=== PATIENT | male | born 1945 | race Hispanic/Latino ===

== ENCOUNTER 2017-06-11 05:39 | Emergency (ER) | payer OTHER ==
[2017-06-11] MEDS ORDERED: IPRATROPIUM/ALBUTEROL SULFATE 3 ML SOLUTION IH ONE (06:13)
[2017-06-11 06:24] LABS: BASOPHILS % (AUTO) 0.5 % (0.0-5.0); EOSINOPHILS % (AUTO) 1.9 % (0.0-8.0); HEMATOCRIT 39.3 % (42-54); LYMPHOCYTES % (AUTO) 38.4 % (21.0-51.0); MEAN CORPUSCULAR HGB CONC 34.2 g/dL (32.0-36.0); MEAN CORPUSCULAR VOLUME 90.4 fL (79-99); MONOCYTES % (AUTO) 6.8 % (3.0-13.0); NEUTROPHILS % (AUTO) 52.4 % (40.0-77.0); PLATELET COUNT (AUTO) 223 K/uL (130-400); RED BLOOD CELL COUNT(AUTO) 4.35 MIL/uL (4.50-6.20); RED CELL DISTRIBUTION WIDTH 13.5 % (11.0-15.5); WHITE BLOOD COUNT (AUTO) 8.1 K/uL (4.8-10.8)
[2017-06-11 06:37] LABS: CREATININE 0.8 mg/dL (0.5-1.5); POTASSIUM 3.8 mmol/L (3.5-5.1)
[2017-06-11 06:41] LABS: ALBUMIN 3.9 g/dL (3.5-5.0); BILIRUBIN,DIRECT 0.1 mg/dL (0.0-0.3); BILIRUBIN,TOTAL 0.4 mg/dL (0.2-1.0); TOTAL PROTEIN, SERUM 7.4 g/dL (6.0-8.3)
[2017-06-11 07:31] LABS: B-TYPE NATRIURETIC PEPTIDE 5 pg/mL (0-100)
[2017-06-11] MEDS ORDERED: SODIUM CHLORIDE 0.9% 500ML 500 ML IV ONE (09:15)
[2017-06-11] MEDS ORDERED: IOPAMIDOL-370 100 ML VIAL IV ONE (10:25)
== END 2017-06-11 12:50 | disposition home or self-care (01) ==
LOC: EDH 05:39
DX: K29.00 Acute gastritis without bleeding (principal); R06.00 Dyspnea, unspecified; B96.81 Helicobacter pylori [H. pylori] as the cause of diseases classified elsewhere; D35.02 Benign neoplasm of left adrenal gland; E11.9 Type 2 diabetes mellitus without complications; I10 Essential (primary) hypertension; Z87.891 Personal history of nicotine dependence
CPT/HCPCS: 36415; 71045; 71275; 80048; 80076; 82550; 83880; 84484; 85025; 85378; 86677; 93005; 96360; 96361; 99291; J7040; Q9967

== ENCOUNTER 2018-03-16 01:10 | Observation (INO) | payer OTHER ==
[~2018-03-16] VITALS: Ht 177.8 cm; Wt 90.8 kg
[~2018-03-16 01:10] MED LIST: ASPI-1197 PO; CLOP75TA14 PO; DULA1.5P SQ; FINA5TAB41 PO; GLIP1TAB5 PO; IPRA3AMP24 IH; LISI-613 PO; NITR30OI6 RC; SIMV20TA6 PO; TAMS0.4C32 PO
[2018-03-16 01:56] LABS: BASOPHILS % (AUTO) 0.7 % (0.0-5.0); EOSINOPHILS % (AUTO) 3.7 % (0.0-8.0); LYMPHOCYTES % (AUTO) 41.4 % (21.0-51.0); MEAN CORPUSCULAR VOLUME 90.7 fL (79-99); MONOCYTES % (AUTO) 6.9 % (3.0-13.0); NEUTROPHILS % (AUTO) 47.3 % (40.0-77.0); PLATELET COUNT (AUTO) 222 K/uL (130-400); RED BLOOD CELL COUNT(AUTO) 3.75 MIL/uL (4.50-6.20); WHITE BLOOD COUNT (AUTO) 8.5 K/uL (4.8-10.8)
[2018-03-16 02:08] LABS: CARBON DIOXIDE 26 mmol/L (21-32); CHLORIDE 100 mmol/L (101-111); CREATININE 1.2 mg/dL (0.5-1.5); GLOMERULAR FILTR. RATE CALC 63 mL/min (>60); GLUCOSE,RANDOM 219 mg/dL (70-105); SODIUM SERUM 138 mmol/L (136-145); UREA NITROGEN, BLOOD 20 mg/dL (7-18)
[2018-03-16 02:10] LABS: INR 0.96 (0.85-1.15); PARTIAL THROMBOPLASTIN TIME 27.7 SEC (26.3-35.5); PROTHROMBIN TIME 10.1 SEC (9.6-11.6)
[2018-03-16 02:12] LABS: ALANINE AMINOTRANSFERASE 17 U/L (12-78); ALBUMIN 3.6 g/dL (3.5-5.0); ASPARTATE AMINOTRANSFERASE 12 U/L (10-37); BILIRUBIN,TOTAL 0.3 mg/dL (0.2-1.0); CREATINE KINASE, TOTAL 43 U/L (21-232); TOTAL PROTEIN, SERUM 6.8 g/dL (6.0-8.3)
[2018-03-16 02:15] LABS: CRP QUANTITATIVE < 2.00 mg/L (0.00-9.0)
[2018-03-16 02:18] LABS: B-TYPE NATRIURETIC PEPTIDE 5 pg/mL (0-100)
[2018-03-16 02:24] LABS: APPEARANCE,URINE Clear (CLEAR); BILIRUBIN,URINE Negative (NEGATIVE); COLOR,URINE Yellow (YELLOW); GLUCOSE, URINE (UA) Negative (NEGATIVE); KETONES,URINE Negative (NEGATIVE); LEUKOCYTE ESTERASE ,URINE Negative (NEGATIVE); NITRATE,URINE Negative (NEGATIVE); OCCULT BLOOD,URINE Negative (NEGATIVE); PROTEIN,URINE Negative (NEGATIVE); UROBILINOGEN,URINE 0.2 mg/dL (0.2-1.0)
[2018-03-16 03:03] LABS: ERYTHROCYTE SEDIMENTATION RATE 25 MM/HR (0-20)
[2018-03-16 06:21] LABS: BASOPHILS % (AUTO) 0.7 % (0.0-5.0); EOSINOPHILS % (AUTO) 2.2 % (0.0-8.0); HEMATOCRIT 32.4 % (42-54); LYMPHOCYTES % (AUTO) 31.1 % (21.0-51.0); MEAN CORPUSCULAR HEMOGLOBIN 29.7 pg (27.0-33.0); MEAN CORPUSCULAR HGB CONC 32.9 g/dL (32.0-36.0); MEAN CORPUSCULAR VOLUME 90.2 fL (79-99); MONOCYTES % (AUTO) 7.7 % (3.0-13.0); NEUTROPHILS % (AUTO) 58.3 % (40.0-77.0); NUCLEATED RED BLOOD CELLS 0.1 % (0.0-0.19); PLATELET COUNT (AUTO) 213 K/uL (130-400); RED BLOOD CELL COUNT(AUTO) 3.59 MIL/uL (4.50-6.20); RED CELL DISTRIBUTION WIDTH 15.4 % (11.0-15.5)
[2018-03-16 06:28] LABS: CREATININE 1.1 mg/dL (0.5-1.5); POTASSIUM 4.4 mmol/L (3.5-5.1)
[2018-03-16] MEDS ORDERED: SODIUM CHLORIDE 0.9% 10 ML VIAL IVP PRN (06:30)
[2018-03-16] MEDS ORDERED: HYDROCODONE/ACETAMINOPHEN 5/325 MG TAB PO PRN (06:30)
[2018-03-16 06:34] LABS: ALBUMIN 3.5 g/dL (3.5-5.0); BILIRUBIN,TOTAL 0.2 mg/dL (0.2-1.0); TOTAL PROTEIN, SERUM 6.8 g/dL (6.0-8.3)
[2018-03-16 08:25] VITALS: BP 145/81
[2018-03-16] MEDS ORDERED: ENOXAPARIN SODIUM 80 MG/0.8 ML SQ SCH (09:00)
[2018-03-16 11:00] VITALS: BP 142/72
[2018-03-16] MEDS: INSULIN R PO SS1 SQ SCH ×3 (11:30→20:51)
[2018-03-16] MEDS ORDERED: ASPI-1012 PO (12:35)
[2018-03-16] MEDS ORDERED: CLIN300C9 PO (12:43)
[2018-03-16] MEDS ORDERED: SULF1TAB42 PO (12:43)
[2018-03-16] MEDS ORDERED: FURO20TA4 PO (12:43)
[2018-03-16] MEDS: CLINDAMYCIN HCL 150 MG CAP PO SCH ×2 (14:27→20:55)
[2018-03-16] MEDS ORDERED: HEPARIN 25000 UNITS/250 ML D5W 250 ML IV PRN (15:15)
[2018-03-16] MEDS: FUROSEMIDE 20 MG TABLET PO SCH (15:34)
[2018-03-16 16:00] VITALS: BP 117/65
[2018-03-16] MEDS: METFORMIN HCL 500 MG TABLET PO SCH (16:22)
[2018-03-16] MEDS ORDERED: HEPARIN SODIUM 5000UNIT/ML 1ML VIAL ONE ×2 (16:30→16:59)
[2018-03-16] MEDS: IPRATROPIUM/ALBUTEROL SULFATE 3 ML SOLUTION IH SCH ×2 (18:24→23:17)
[2018-03-16 20:00] VITALS: BP 136/56
[2018-03-16] MEDS: SULFAMETHOX-TMP DS 800/160 TAB PO SCH (20:54)
[2018-03-16] MEDS ORDERED: SIMVASTATIN 20 MG TABLET PO SCH (21:00)
[2018-03-17] VITALS: BP 112/62
[2018-03-17 04:00] VITALS: BP 127/72
[2018-03-17 05:19] LABS: HEMATOCRIT 31.6 % (42-54); MEAN CORPUSCULAR HEMOGLOBIN 30.9 pg (27.0-33.0); MEAN CORPUSCULAR HGB CONC 34.2 g/dL (32.0-36.0); MEAN CORPUSCULAR VOLUME 90.2 fL (79-99); PLATELET COUNT (AUTO) 242 K/uL (130-400); RED CELL DISTRIBUTION WIDTH 15.2 % (11.0-15.5); WHITE BLOOD COUNT (AUTO) 6.5 K/uL (4.8-10.8)
[2018-03-17 05:31] LABS: CREATININE 0.9 mg/dL (0.5-1.5); POTASSIUM 4.2 mmol/L (3.5-5.1)
[2018-03-17] MEDS: IPRATROPIUM/ALBUTEROL SULFATE 3 ML SOLUTION IH SCH ×2 (06:09→11:28)
[2018-03-17] MEDS: INSULIN R PO SS1 SQ SCH ×2 (06:27→11:30)
[2018-03-17] MEDS: FUROSEMIDE 20 MG TABLET PO SCH (06:27)
[2018-03-17 07:30] VITALS: BP 123/64
[2018-03-17] MEDS: CLINDAMYCIN HCL 150 MG CAP PO SCH (08:38)
[2018-03-17] MEDS: METFORMIN HCL 500 MG TABLET PO SCH (08:38)
[2018-03-17] MEDS: SULFAMETHOX-TMP DS 800/160 TAB PO SCH (08:38)
[2018-03-17] MEDS ORDERED: LISINOPRIL 20 MG TABLET PO SCH (09:00)
[2018-03-17] MEDS ORDERED: **HM** TRULICITY 1.5MG SQ SCH (09:00)
[2018-03-17] MEDS ORDERED: CLOPIDOGREL BISULFATE 75 MG TAB PO SCH (09:00)
[2018-03-17] MEDS ORDERED: ASPIRIN 325 MG TABLET PO SCH (09:00)
[2018-03-17 11:00] VITALS: BP 121/62
[2018-03-17] MEDS ORDERED: PREGABALIN 75 MG CAPSULE PO SCH (14:00)
[2018-03-17] MEDS ORDERED: GLIPIZIDE 5 MG TABLET PO SCH (17:00)
== END 2018-03-17 13:40 | disposition home or self-care (01) ==
LOC: EDH 01:10 → INTOOBSV 05:11 → EDHIP 05:11 → 3CH 05:38
PROVIDERS: ADMIT Internal Medicine; ATTEND Internal Medicine
DX: E11.51 Type 2 diabetes mellitus with diabetic peripheral angiopathy without gangrene (principal); E78.5 Hyperlipidemia, unspecified; I10 Essential (primary) hypertension; I25.10 Atherosclerotic heart disease of native coronary artery without angina pectoris; I99.8 Other disorder of circulatory system; Z96.698 Presence of other orthopedic joint implants; Z96.622 Presence of left artificial elbow joint; Z96.621 Presence of right artificial elbow joint; Z87.891 Personal history of nicotine dependence; Z79.899 Other long term (current) drug therapy
CPT/HCPCS: 36415 ×2; 80048; 80053 ×2; 81003; 82550; 82948 ×5; 83880; 84484; 85025 ×2; 85027; 85610; 85651; 85730 ×4; 86140; 93005; 93925; 93971; 94640 ×4; 94664; 96372; 99291; G0378 ×32; J1644 ×3; J1650

== ENCOUNTER 2018-10-28 09:00 | Day surgery (SDC) | payer OTHER ==
[~2018-10-28] VITALS: Ht 177.8 cm; Wt 95.3 kg
[~2018-10-28 09:00] MED LIST changes: -ASPI-1197 PO; +ASPI-555 PO; +ATOR40TA71 PO; +CILO100T PO; -DULA1.5P SQ; -IPRA3AMP24 IH; +LORA-997 PO; -NITR30OI6 RC; +RIVA2.5T PO; +SODIUM CHLORIDE 0.9% 1000ML 1,000 ML IV ONE; +TYL3 PO
[2018-10-28 11:29] VITALS: BP 149/81
[2018-10-28 12:15] VITALS: BP 98/54
[2018-10-28 12:20] VITALS: BP 107/53
[2018-10-28 12:25] VITALS: BP 110/55
[2018-10-28 12:30] VITALS: BP 122/66
[2018-10-28 12:35] VITALS: BP 126/68
--- NOTE | 2018-10-28 12:47 | NUR ---
DC PT DC HOME VIA WC, NO DISTRESS NOTED. DENIES ANY PAIN OR DISCOMFORTS ACCOMPANIED BY SPOUSE
== END 2018-10-28 12:47 | disposition home or self-care (01) ==
LOC: DAH 09:00 → ENDO 09:00
PROVIDERS: ATTEND Internal Medicine
DX: D12.3 Benign neoplasm of transverse colon (principal); D12.4 Benign neoplasm of descending colon; D12.5 Benign neoplasm of sigmoid colon; K62.1 Rectal polyp; K64.1 Second degree hemorrhoids; K57.30 Diverticulosis of large intestine without perforation or abscess without bleeding; J44.9 Chronic obstructive pulmonary disease, unspecified; E78.5 Hyperlipidemia, unspecified; I25.10 Atherosclerotic heart disease of native coronary artery without angina pectoris; E11.51 Type 2 diabetes mellitus with diabetic peripheral angiopathy without gangrene
CPT/HCPCS: 45380; 45385; 82948 ×2; 88305; A4606; J7030; 45384

== ENCOUNTER 2020-04-08 11:51 | Inpatient (IN) | payer OTHER ==
[~2020-04-08] VITALS: Ht 177.8 cm; Wt 95.3 kg
[~2020-04-08 11:51] MED LIST changes: -ASPI-555 PO; +ASPI-556 PO; +SIMV-43 PO; -SIMV20TA6 PO; -SODIUM CHLORIDE 0.9% 1000ML 1,000 ML IV ONE
[2020-04-08] MEDS ORDERED: ACETAMINOPHEN EXTRA STRENGTH 500 MG TABLET ONE (12:15)
[2020-04-08] MEDS ORDERED: SODIUM CHLORIDE 0.9% 1000ML 1,000 ML IV ONE ×2 (12:15→14:43)
[2020-04-08 12:22] LABS: BASOPHILS % (AUTO) 0.2 % (0.0-5.0); EOSINOPHILS % (AUTO) 1.6 % (0.0-8.0); HEMATOCRIT 38.3 % (42-54); MEAN CORPUSCULAR HEMOGLOBIN 30.1 pg (27.0-33.0); MEAN CORPUSCULAR HGB CONC 34.7 g/dL (32.0-36.0); MEAN CORPUSCULAR VOLUME 86.7 fL (79-99); MONOCYTES % (AUTO) 6.2 % (3.0-13.0); NEUTROPHILS % (AUTO) 70.7 % (40.0-77.0); PLATELET COUNT (AUTO) 181 K/uL (130-400); RED BLOOD CELL COUNT(AUTO) 4.42 MIL/uL (4.50-6.20); RED CELL DISTRIBUTION WIDTH 12.7 % (11.0-15.5); WHITE BLOOD COUNT (AUTO) 6.1 K/uL (4.8-10.8)
[2020-04-08] MEDS ORDERED: AZITHROMYCIN 250 MG TABLET PO ONE (12:31)
[2020-04-08] MEDS ORDERED: ONDANSETRON HCL 4 MG/2 ML VIAL ONE (12:31)
[2020-04-08] MEDS ORDERED: DEXAMETHASONE SOD PHOSPHATE 10MG/ML 1ML VIAL ONE (12:31)
[2020-04-08] MEDS ORDERED: CEFTRIAXONE SODIUM 1 GM ONE (12:31)
[2020-04-08 12:45] LABS: RAPID GROUP A STREP NEGATIVE (NEGATIVE)
[2020-04-08 12:48] LABS: INR 1.05 (0.85-1.15); PROTHROMBIN TIME 11.2 SEC (9.6-11.6)
[2020-04-08 12:49] LABS: PARTIAL THROMBOPLASTIN TIME 31.2 SEC (26.3-35.5)
[2020-04-08 12:58] LABS: ABG BASE EXCESS -0.5 mmol/L (-2.0-3.0); ABG HCO3 21.6 mmol/L (21.0-28.0); ABG PCO2 29 mmHg (35-48)
[2020-04-08 13:07] LABS: POTASSIUM 3.8 mmol/L (3.5-5.1)
[2020-04-08 13:12] LABS: ALBUMIN 3.3 g/dL (3.5-5.0); BILIRUBIN,TOTAL 0.5 mg/dL (0.2-1.0); TOTAL PROTEIN, SERUM 7.6 g/dL (6.0-8.3)
[2020-04-08] MEDS ORDERED: LOPERAMIDE HCL 2 MG CAP PO PRN (13:45)
[2020-04-08] MEDS ORDERED: LACTULOSE 20 GM/30 ML UDCUP PO PRN (13:45)
[2020-04-08] MEDS ORDERED: DEXAMETHASONE SOD PHOSPHATE 4 MG/ML 1ML VIAL IVP SCH (13:45)
[2020-04-08] MEDS ORDERED: DOXYCYCLINE 100MG+NS 250ML IV SCH (13:45)
[2020-04-08] MEDS ORDERED: SODIUM CHLORIDE 0.9% 1000ML 1,000 ML IV SCH (13:45)
[2020-04-08] MEDS ORDERED: ERGOCALCIFEROL (VITAMIN D2) 50,000 UNIT CAPSULE PO ONE (13:45)
[2020-04-08] MEDS ORDERED: CEFTRIAXONE SODIUM 1 GM IVP SCH (13:45)
[2020-04-08] MEDS ORDERED: ACETAMINOPHEN 325 MG TAB PO PRN (13:45)
[2020-04-08] MEDS ORDERED: LABETALOL 20 MG/4 ML DISP.SYRIN IV PRN (13:45)
[2020-04-08] MEDS ORDERED: ACETAMINOPHEN-CODEINE 300/30MG TAB PO PRN (13:45)
[2020-04-08] MEDS ORDERED: DOXYCYCLINE 100MG+NS 250ML 250 ML IV SCH (14:00)
[2020-04-08] MEDS ORDERED: ERGOCALCIFEROL (VITAMIN D2) 50,000 UNIT CAPSULE ONE (14:42)
[2020-04-08] MEDS ORDERED: DOXYCYCLINE 100MG+NS 250ML 250 ML IV ONE (14:43)
[2020-04-08] MEDS ORDERED: GUAIFENESIN-DM 200/20 MG 10 ML PO PRN (15:30)
[2020-04-08] MEDS ORDERED: BENZONATATE 100 MG CAPSULE PO SCH (15:30)
[2020-04-08] MEDS ORDERED: ACETAMINOPHEN-CODEINE 300/30MG TAB PO SCH (15:45)
[2020-04-08] MEDS ORDERED: SIMVASTATIN 20 MG TABLET PO SCH (21:00)
[2020-04-08] MEDS ORDERED: FAMOTIDINE 20MG TAB 20 MG TAB PO SCH (21:00)
[2020-04-08] MEDS ORDERED: RIVAROXABAN 2.5 MG TABLET PO SCH (21:00)
[2020-04-08] MEDS ORDERED: CILOSTAZOL 100 MG TAB PO SCH (21:00)
[2020-04-08] MEDS ORDERED: FAMOTIDINE 20MG TAB 20 MG TAB ONE (23:11)
[2020-04-09 04:16] LABS: ABG BASE EXCESS -3.5 mmol/L (-2.0-3.0); ABG HCO3 20.5 mmol/L (21.0-28.0); ABG OXYGEN SATURATION 93.7 % (95.0-99.0); ABG PCO2 34 mmHg (35-48)
[2020-04-09 05:47] LABS: HEMATOCRIT 37.3 % (42-54); LYMPHOCYTES % (AUTO) 24.9 % (21.0-51.0); MEAN CORPUSCULAR HGB CONC 34.3 g/dL (32.0-36.0); MEAN CORPUSCULAR VOLUME 87.6 fL (79-99); MONOCYTES % (AUTO) 7.3 % (3.0-13.0); NEUTROPHILS % (AUTO) 67.2 % (40.0-77.0); PLATELET COUNT (AUTO) 173 K/uL (130-400); RED BLOOD CELL COUNT(AUTO) 4.26 MIL/uL (4.50-6.20); RED CELL DISTRIBUTION WIDTH 12.8 % (11.0-15.5); WHITE BLOOD COUNT (AUTO) 3.5 K/uL (4.8-10.8)
[2020-04-09 06:21] LABS: ALANINE AMINOTRANSFERASE 11 U/L (12-78); ALBUMIN 2.6 g/dL (3.5-5.0); ASPARTATE AMINOTRANSFERASE 22 U/L (10-37); BILIRUBIN,TOTAL 0.3 mg/dL (0.2-1.0); CARBON DIOXIDE 23 mmol/L (21-32); CHLORIDE 103 mmol/L (101-111); CREATININE 0.7 mg/dL (0.5-1.5); GLOMERULAR FILTR. RATE CALC 116 mL/min (>60); GLUCOSE,RANDOM 243 mg/dL (70-105); LACTATE DEHYDROGENASE 353 U/L (81-234); POTASSIUM 4.4 mmol/L (3.5-5.1); SODIUM SERUM 136 mmol/L (136-145); TOTAL PROTEIN, SERUM 6.5 g/dL (6.0-8.3); UREA NITROGEN, BLOOD 18 mg/dL (7-18)
[2020-04-09] MEDS ORDERED: TAMSULOSIN HCL 0.4 MG CAP.ER.24H PO SCH (08:00)
[2020-04-09] MEDS ORDERED: ENOXAPARIN SODIUM 80 MG/0.8 ML SQ ONE (08:51)
[2020-04-09] MEDS ORDERED: ASPIRIN 81MG TAB.CHEW ONE (08:51)
[2020-04-09] MEDS ORDERED: FAMOTIDINE 20MG TAB 20 MG TAB ONE ×2 (08:52→21:59)
[2020-04-09] MEDS ORDERED: LISINOPRIL 5 MG TABLET ONE (08:52)
[2020-04-09] MEDS ORDERED: ASCORBIC ACID 500 MG TAB ONE (08:52)
[2020-04-09] MEDS ORDERED: CLOPIDOGREL BISULFATE 75 MG TAB ONE (08:53)
[2020-04-09] MEDS ORDERED: ATORVASTATIN CALCIUM 40 MG TABLET ONE (08:53)
[2020-04-09] MEDS ORDERED: ZINC SULFATE 220 CAPSULE ONE (08:53)
[2020-04-09] MEDS ORDERED: FINASTERIDE 5 MG TABLET ONE (08:54)
[2020-04-09] MEDS ORDERED: TAMSULOSIN HCL 0.4 MG CAP.ER.24H ONE (08:54)
[2020-04-09] MEDS ORDERED: LORATADINE 10 MG TABLET ONE (08:54)
[2020-04-09] MEDS ORDERED: ATORVASTATIN CALCIUM 40 MG TABLET PO SCH (09:00)
[2020-04-09] MEDS ORDERED: CLOPIDOGREL BISULFATE 75 MG TAB PO SCH (09:00)
[2020-04-09] MEDS ORDERED: ASPIRIN 81MG TAB.CHEW PO SCH (09:00)
[2020-04-09] MEDS ORDERED: LORATADINE 10 MG TABLET PO SCH (09:00)
[2020-04-09] MEDS ORDERED: DRONABINOL 2.5 MG CAP PO ONE (09:00)
[2020-04-09] MEDS ORDERED: ZINC SULFATE 220 CAPSULE PO SCH (09:00)
[2020-04-09] MEDS ORDERED: FINASTERIDE 5 MG TABLET PO SCH (09:00)
[2020-04-09] MEDS ORDERED: ENOXAPARIN SODIUM 40 MG/0.4 ML SYRINGE SQ SCH (09:00)
[2020-04-09] MEDS ORDERED: LISINOPRIL 20 MG TABLET PO SCH (09:00)
[2020-04-09] MEDS ORDERED: ASCORBIC ACID 500 MG TAB PO SCH (09:00)
[2020-04-09] MEDS ORDERED: BENZONATATE 100 MG CAPSULE PO ONE ×2 (09:22→17:57)
[2020-04-09] MEDS ORDERED: DOXYCYCLINE 100MG+NS 250ML 250 ML IV ONE (10:43)
[2020-04-09] MEDS ORDERED: IOHEXOL 350 MG/ML 100ML INFUS..BTL IV ONE (12:04)
[2020-04-09] MEDS ORDERED: INSULIN HUMULIN R 100 UNIT/ML 3ML ONE ×3 (13:30→22:10)
[2020-04-09] MEDS ORDERED: DEXAMETHASONE SOD PHOSPHATE 10MG/ML 1ML VIAL ONE (17:57)
[2020-04-09] MEDS ORDERED: CETI10TA57 PO (19:54)
[2020-04-09] MEDS ORDERED: RIVA2.5T PO (19:54)
[2020-04-09] MEDS ORDERED: METO-391 PO (19:54)
[2020-04-10] MEDS ORDERED: FAMOTIDINE 20MG TAB 20 MG TAB ONE (07:44)
[2020-04-10] MEDS ORDERED: ASCORBIC ACID 500 MG TAB ONE (07:44)
[2020-04-10] MEDS ORDERED: CLOPIDOGREL BISULFATE 75 MG TAB ONE (07:44)
[2020-04-10] MEDS ORDERED: ASPIRIN 81MG TAB.CHEW ONE (07:44)
[2020-04-10] MEDS ORDERED: ATORVASTATIN CALCIUM 40 MG TABLET ONE (07:45)
[2020-04-10] MEDS ORDERED: BENZONATATE 100 MG CAPSULE PO ONE (07:45)
[2020-04-10] MEDS ORDERED: ZINC SULFATE 220 CAPSULE ONE (07:46)
[2020-04-10] MEDS ORDERED: LORATADINE 10 MG TABLET ONE (07:46)
[2020-04-10] MEDS ORDERED: ENOXAPARIN SODIUM 40 MG/0.4 ML SYRINGE SQ ONE (07:46)
[2020-04-10] MEDS ORDERED: TAMSULOSIN HCL 0.4 MG CAP.ER.24H ONE (07:46)
[2020-04-10] MEDS ORDERED: LISINOPRIL 20 MG TABLET ONE (07:47)
[2020-04-10] MEDS ORDERED: FINASTERIDE 5 MG TABLET ONE (07:47)
[2020-04-10 08:42] LABS: EOSINOPHILS % (AUTO) 1.7 % (0.0-8.0); HEMATOCRIT 34.9 % (42-54); LYMPHOCYTES % (AUTO) 15.3 % (21.0-51.0); MEAN CORPUSCULAR HEMOGLOBIN 30.2 pg (27.0-33.0); MEAN CORPUSCULAR HGB CONC 34.4 g/dL (32.0-36.0); MEAN CORPUSCULAR VOLUME 87.9 fL (79-99); NEUTROPHILS % (AUTO) 75.5 % (40.0-77.0); PLATELET COUNT (AUTO) 215 K/uL (130-400); RED BLOOD CELL COUNT(AUTO) 3.97 MIL/uL (4.50-6.20); RED CELL DISTRIBUTION WIDTH 12.8 % (11.0-15.5); WHITE BLOOD COUNT (AUTO) 6.4 K/uL (4.8-10.8)
[2020-04-10 09:01] LABS: ALBUMIN 2.8 g/dL (3.5-5.0); BILIRUBIN,TOTAL 0.4 mg/dL (0.2-1.0); CREATININE 0.8 mg/dL (0.5-1.5); CRP QUANTITATIVE 41.3 mg/L (0.00-9.0); MAGNESIUM 2.1 mg/dL (1.80-2.40); PHOSPHORUS 2.6 mg/dL (2.5-4.9); POTASSIUM 3.9 mmol/L (3.5-5.1); TOTAL PROTEIN, SERUM 6.7 g/dL (6.0-8.3)
[2020-04-10] MEDS ORDERED: DEXAMETHASONE SOD PHOSPHATE 4 MG/ML 1ML VIAL ONE (12:28)
[2020-04-10] MEDS ORDERED: INSULIN HUMULIN R 100 UNIT/ML 3ML ONE (12:31)
[2020-04-10 13:41] LABS: BASOPHILS % (AUTO) 0.1 % (0.0-5.0); EOSINOPHILS % (AUTO) 0.1 % (0.0-8.0); HEMATOCRIT 33.2 % (42-54); MEAN CORPUSCULAR HEMOGLOBIN 29.9 pg (27.0-33.0); MEAN CORPUSCULAR HGB CONC 34.3 g/dL (32.0-36.0); MEAN CORPUSCULAR VOLUME 87.1 fL (79-99); MONOCYTES % (AUTO) 5.1 % (3.0-13.0); NEUTROPHILS % (AUTO) 79.2 % (40.0-77.0); PLATELET COUNT (AUTO) 217 K/uL (130-400); RED BLOOD CELL COUNT(AUTO) 3.81 MIL/uL (4.50-6.20); WHITE BLOOD COUNT (AUTO) 7.8 K/uL (4.8-10.8)
[2020-04-10 14:37] LABS: ABG BASE EXCESS -0.4 mmol/L (-2.0-3.0); ABG HCO3 21.6 mmol/L (21.0-28.0); ABG OXYGEN SATURATION 94.2 % (95.0-99.0); ABG PCO2 29 mmHg (35-48)
== END 2020-04-10 16:31 | disposition home or self-care (01) | DRG 177 ==
LOC: EDH 11:51 → INTOOBSV 13:38 → EDHIP 13:38 → OBSVTOIN 13:38
PROVIDERS: ADMIT Internal Medicine; ATTEND Internal Medicine
PROC: XW13325 Transfusion of Convalescent Plasma (Nonautologous) into Peripheral Vein, Percutaneous Approach, New Technology Group 5 (ICD-10-PCS; principal; 2020-04-09)
DX: U07.1 COVID-19 (principal); J12.89 Other viral pneumonia; E87.1 Hypo-osmolality and hyponatremia; J44.0 Chronic obstructive pulmonary disease with (acute) lower respiratory infection; E86.0 Dehydration; I10 Essential (primary) hypertension; I25.10 Atherosclerotic heart disease of native coronary artery without angina pectoris; N40.0 Benign prostatic hyperplasia without lower urinary tract symptoms; E78.5 Hyperlipidemia, unspecified; E11.51 Type 2 diabetes mellitus with diabetic peripheral angiopathy without gangrene; R09.02 Hypoxemia; Z95.1 Presence of aortocoronary bypass graft; Z79.899 Other long term (current) drug therapy; Z79.84 Long term (current) use of oral hypoglycemic drugs
CPT/HCPCS: 36415; 36600; 71045; 71275; 80053; 82550; 82728; 82803; 82948; 83605; 83615; 83735; 84100; 84145; 84484; 85025; 85378; 85610; 85730; 86140; 86900; 86901; 86927; 87040; 87426; 87804; 87880; 93005; 93970; 94760; 99291; G0378; J0696; J1100; J1650; J1815; J2405; J3490; J7030; Q9967

== ENCOUNTER 2021-06-29 20:48 | Emergency (ER) | payer OTHER ==
[~2021-06-29] VITALS: Ht 175.3 cm; Wt 96.2 kg
[~2021-06-29 20:48] MED LIST changes: +CETI10TA57 PO; -LISI-613 PO; +LISI20TA24 PO; +METO-391 PO
[2021-06-29 23:11] LABS: BASOPHILS % (AUTO) 0.2 % (0.0-5.0); EOSINOPHILS % (AUTO) 0.1 % (0.0-8.0); HEMATOCRIT 38.4 % (42-54); LYMPHOCYTES % (AUTO) 12.7 % (21.0-51.0); MEAN CORPUSCULAR HEMOGLOBIN 29.6 pg (27.0-33.0); MEAN CORPUSCULAR HGB CONC 32.8 g/dL (32.0-36.0); MEAN CORPUSCULAR VOLUME 90.1 fL (79-99); NEUTROPHILS % (AUTO) 79.3 % (40.0-77.0); PLATELET COUNT (AUTO) 188 K/uL (130-400); RED BLOOD CELL COUNT(AUTO) 4.26 MIL/uL (4.50-6.20); RED CELL DISTRIBUTION WIDTH 13.5 % (11.0-15.5); WHITE BLOOD COUNT (AUTO) 16.1 K/uL (4.8-10.8)
[2021-06-29 23:19] LABS: CREATININE 0.8 mg/dL (0.5-1.5); POTASSIUM 3.6 mmol/L (3.5-5.1)
[2021-06-29 23:44] LABS: BILIRUBIN,URINE Negative (NEGATIVE); COLOR,URINE Yellow (YELLOW); GLUCOSE, URINE (UA) >=1000 mg/dL (NEGATIVE); KETONES,URINE 15 mg/dL (NEGATIVE); LEUKOCYTE ESTERASE ,URINE Small (NEGATIVE); NITRATE,URINE Negative (NEGATIVE); OCCULT BLOOD,URINE Small (NEGATIVE); PH,URINE 6.5 (5.0-8.0); PROTEIN,URINE POS 2+ mg/dL (NEGATIVE)
[2021-06-29 23:46] LABS: APPEARANCE,URINE SLIGHTLY CLOUDY (CLEAR)
[2021-06-29 23:54] LABS: BACTERIA,URINE Few /HPF (None Seen); SQUAMOUS EPITHELIAL CELL,UR 0-2 /HPF (0-2)
[2021-06-30] MEDS ORDERED: LEVOFLOXACIN 500 MG TABLET ONE (01:07)
[2021-06-30] MEDS ORDERED: CIPR-278 PO (01:08)
[2021-06-30] MEDS ORDERED: LEVOFLOXACIN 500 MG TABLET PO SCH (01:30)
[2021-06-30] MEDS ORDERED: LEVOFLOXACIN 750 MG TABLET PO SCH (01:30)
[2021-06-30 01:36] VITALS: BP 136/63
== END 2021-06-30 01:40 | disposition home or self-care (01) ==
LOC: EDH 20:48
DX: N39.0 Urinary tract infection, site not specified (principal); I10 Essential (primary) hypertension; E78.00 Pure hypercholesterolemia, unspecified; E11.9 Type 2 diabetes mellitus without complications; Z79.899 Other long term (current) drug therapy; Z79.82 Long term (current) use of aspirin; Z79.84 Long term (current) use of oral hypoglycemic drugs
CPT/HCPCS: 36415; 80048; 81001; 85025; 87088

== ENCOUNTER 2023-12-13 14:47 | Inpatient (IN) | payer OTHER ==
[~2023-12-13] VITALS: Ht 175.3 cm; Wt 92.7 kg
[~2023-12-13 14:47] MED LIST changes: -ATOR40TA71 PO; -CETI10TA57 PO; -CILO100T PO; -CLOP75TA14 PO; -LORA-997 PO; +QUET50TA24 PO; +RIVA10TA PO; -RIVA2.5T PO; -TYL3 PO
[2023-12-13 16:22] LABS: POTASSIUM 4.3 mmol/L (3.5-5.1)
[2023-12-13 16:25] LABS: INR 1.16 (0.85-1.15); PROTHROMBIN TIME 12.4 SEC (9.6-11.6)
[2023-12-13 16:27] LABS: MAGNESIUM 1.7 mg/dL (1.80-2.40)
[2023-12-13 17:25] LABS: SARS-CoV-2, RNA, NAAT NEGATIVE SARS CoV-2 (NEGATIVE)
[2023-12-13 17:28] LABS: INFLUENZA TYPE A Negative For Type A (NEGATIVE); INFLUENZA TYPE B Negative For Type B (NEGATIVE)
[2023-12-13 18:09] LABS: BASOPHILS # (AUTO) 0.04 K/uL (0.00-0.20); BASOPHILS % (AUTO) 0.3 % (0.0-5.0); EOSINOPHILS # (AUTO) 0.13 K/uL (0.00-0.70); HEMATOCRIT 38.7 % (42-54); IMMATURE GRANULOCYTE ABSOLUTE 0.05 K/uL (0-1); LYMPHOCYTES # (AUTO) 3.2 K/uL (1.0-4.8); LYMPHOCYTES % (AUTO) 25.7 % (21.0-51.0); MEAN CORPUSCULAR HEMOGLOBIN 29.7 pg (27.0-33.0); MEAN CORPUSCULAR VOLUME 92.6 fL (79-99); MONOCYTES # (AUTO) 0.8 K/uL (0.1-1.0); MONOCYTES % (AUTO) 6.6 % (3.0-13.0); NEUTROPHILS # (AUTO) 8.2 K/uL (1.8-7.7); PLATELET COUNT (AUTO) 299 K/uL (130-400); RED BLOOD CELL COUNT(AUTO) 4.18 MIL/uL (4.50-6.20); RED CELL DISTRIBUTION WIDTH 13.8 % (11.0-15.5); WHITE BLOOD COUNT (AUTO) 12.4 K/uL (4.8-10.8)
[2023-12-13 20:02] VITALS: PULSE 88; RESP 20
[2023-12-13] MEDS: IpraTROPium/alBUTERol SULFATE 3 ML SOLUTION IH ONE (20:02)
[2023-12-13] MEDS: Solu-medROL 125MG VIAL IVP ONE (20:26)
[2023-12-13 20:37] LABS: APPEARANCE,URINE CLEAR (CLEAR); BILIRUBIN,URINE NEGATIVE (NEGATIVE); COLOR,URINE YELLOW (YELLOW); GLUCOSE, URINE (UA) >=1000 mg/dL (NEGATIVE); KETONES,URINE NEGATIVE (NEGATIVE); LEUKOCYTE ESTERASE ,URINE NEGATIVE Leu/uL (NEGATIVE); NITRATE,URINE NEGATIVE (NEGATIVE); OCCULT BLOOD,URINE NEGATIVE (NEGATIVE); PH,URINE 5.5 (5.0-8.0); PROTEIN,URINE 10 mg/dL (NEGATIVE); UROBILINOGEN,URINE 0.2 mg/dL (0.2-1.0)
[2023-12-13 20:38] LABS: ADD UA MICROSCOPIC YES
[2023-12-13 20:39] LABS: MUCUS,URINE RARE LPF (None Seen); RBC,URINE 0-1 /HPF (0-1); SQUAMOUS EPITHELIAL CELL,UR RARE /HPF (0-2); WBC,URINE 0-1 /HPF (0-1)
[2023-12-13] MEDS: cefTRIAXone 1G VIAL IVPB SCH (21:33)
[2023-12-13] MEDS: AZITHROMYCIN 500MG+NS 250ML 250 ML IVPB SCH (22:11)
[2023-12-13] MEDS ORDERED: CLOP75TA32 PO (22:55)
[2023-12-13 23:53] VITALS: PULSE 88; RESP 20
[2023-12-13] MEDS: IpraTROPium/alBUTERol SULFATE 3 ML SOLUTION IH SCH (23:53)
[2023-12-14] VITALS (13 sets, daily range): BP systolic 99–140; BP diastolic 53–79; PULSE 88–103; RESP 15–20; TEMP 97.7–98.2; O2SAT 96–99
[2023-12-14 00:53] LABS: BASOPHILS # (AUTO) 0.03 K/uL (0.00-0.20); BASOPHILS % (AUTO) 0.2 % (0.0-5.0); EOSINOPHILS # (AUTO) 0.04 K/uL (0.00-0.70); EOSINOPHILS % (AUTO) 0.3 % (0.0-8.0); IMMATURE GRANULOCYTE ABSOLUTE 0.06 K/uL (0-1); LYMPHOCYTES % (AUTO) 23.5 % (21.0-51.0); MEAN CORPUSCULAR HEMOGLOBIN 30.2 pg (27.0-33.0); MEAN CORPUSCULAR HGB CONC 33.1 g/dL (32.0-36.0); MEAN CORPUSCULAR VOLUME 91.4 fL (79-99); MONOCYTES # (AUTO) 0.2 K/uL (0.1-1.0); MONOCYTES % (AUTO) 1.4 % (3.0-13.0); NEUTROPHILS # (AUTO) 9.4 K/uL (1.8-7.7); NEUTROPHILS % (AUTO) 74.1 % (40.0-77.0); PLATELET COUNT (AUTO) 280 K/uL (130-400); RED BLOOD CELL COUNT(AUTO) 3.94 MIL/uL (4.50-6.20); RED CELL DISTRIBUTION WIDTH 13.7 % (11.0-15.5); WHITE BLOOD COUNT (AUTO) 12.6 K/uL (4.8-10.8)
[2023-12-14 01:07] LABS: BILIRUBIN,TOTAL 0.3 mg/dL (0.2-1.0); POTASSIUM 4.7 mmol/L (3.5-5.1); TOTAL PROTEIN, SERUM 6.7 g/dL (6.0-8.3)
[2023-12-14] MEDS ORDERED: GUAI120L62 PO (02:14)
[2023-12-14] MEDS ORDERED: [UNRECOGNIZED DRUG - OTHER] PO PRN (02:30)
[2023-12-14] MEDS ORDERED: CODEINE PHOSPHATE PO PRN (02:30)
[2023-12-14] MEDS ORDERED: GUAIFENESIN PO PRN (02:30)
[2023-12-14] MEDS: SODIUM CHLORIDE 3% FOR INHALATION 4 ML/AMP VIAL.NEB IH ONE (07:25)
[2023-12-14] MEDS: GLIPIZIDE METFORMIN PO SCH (08:00)
[2023-12-14] MEDS: metOPROLol sucCINATE 50 MG TAB.SR.24H PO SCH (08:42)
[2023-12-14] MEDS: LISINOPRIL 20 MG TABLET PO SCH (08:42)
[2023-12-14] MEDS: Solu-medROL 40MG VIAL IVP SCH (08:42)
[2023-12-14] MEDS: finaSTERide 5 MG TABLET PO SCH (08:43)
[2023-12-14] MEDS: tamSULOsin HCL 0.4 MG CAP.ER.24H PO SCH (08:43)
[2023-12-14] MEDS: ENOXAPARIN SODIUM 100 MG/1 ML SQ SCH (08:44)
[2023-12-14] MEDS: simVASTatin 20 MG TABLET PO SCH (19:45)
[2023-12-14] MEDS: queTIAPine fuMARate 25 MG TAB PO SCH (19:46)
[2023-12-14] MEDS ORDERED: ENOXAPARIN SODIUM 80 MG/0.8 ML SQ SCH (21:00)
[2023-12-15] VITALS (10 sets, daily range): BP systolic 122–139; BP diastolic 59–73; PULSE 80–101; RESP 17–20; TEMP 97.7–98.3; O2SAT 96–97
[2023-12-15 05:18] LABS: HEMATOCRIT 34.1 % (42-54); MEAN CORPUSCULAR HEMOGLOBIN 29.7 pg (27.0-33.0); MEAN CORPUSCULAR HGB CONC 32.6 g/dL (32.0-36.0); MEAN CORPUSCULAR VOLUME 91.2 fL (79-99); RED BLOOD CELL COUNT(AUTO) 3.74 MIL/uL (4.50-6.20); RED CELL DISTRIBUTION WIDTH 13.9 % (11.0-15.5); WHITE BLOOD COUNT (AUTO) 13.5 K/uL (4.8-10.8)
[2023-12-15 05:42] LABS: CREATININE 0.9 mg/dL (0.5-1.3); PHOSPHORUS 4.2 mg/dL (2.5-4.9)
[2023-12-15 05:53] LABS: POTASSIUM 4.7 mmol/L (3.5-5.1)
[2023-12-15] MEDS: RIVAROXABAN 10 MG TABLET PO SCH (07:47)
[2023-12-15] MEDS: ASPIRIN 81 MG EC TAB PO SCH (07:47)
[2023-12-15] MEDS: cloPIDOgrel 75MG TAB PO SCH (07:47)
[2023-12-15] MEDS: INSULIN humuLIN R 100 UNIT/ML 3ML SQ SCH ×2 (12:01→18:45)
[2023-12-15] MEDS ORDERED: INSULIN humuLIN R 100 UNIT/ML 3ML SQ SCH (21:00)
[2023-12-16] VITALS (16 sets, daily range): BP systolic 102–148; BP diastolic 54–78; PULSE 76–93; RESP 17–20; TEMP 97.8–98.6; O2SAT 94–97
[2023-12-16 05:17] LABS: HEMATOCRIT 31.9 % (42-54); MEAN CORPUSCULAR HEMOGLOBIN 29.1 pg (27.0-33.0); MEAN CORPUSCULAR VOLUME 91.1 fL (79-99); RED BLOOD CELL COUNT(AUTO) 3.5 MIL/uL (4.50-6.20); RED CELL DISTRIBUTION WIDTH 13.8 % (11.0-15.5); WHITE BLOOD COUNT (AUTO) 13.4 K/uL (4.8-10.8)
[2023-12-16 05:34] LABS: ALBUMIN 2.8 g/dL (3.5-5.0); BILIRUBIN,TOTAL 0.2 mg/dL (0.2-1.0); CREATININE 0.8 mg/dL (0.5-1.3); POTASSIUM 3.6 mmol/L (3.5-5.1); TOTAL PROTEIN, SERUM 6.1 g/dL (6.0-8.3)
[2023-12-16] MEDS: predniSONE 20 MG TABLET PO SCH (08:11)
[2023-12-16] MEDS: fluCONazole 200 MG/NS 100 ML IV SCH (13:55)
[2023-12-16] MEDS: acetaMINOPHEN 500 MG TABLET PO ONE (15:01)
[2023-12-17 04:00] VITALS: BP 140/72; PULSE 83; RESP 20; TEMP 97.7
[2023-12-17 05:19] LABS: BASOPHILS # (AUTO) 0.02 K/uL (0.00-0.20); BASOPHILS % (AUTO) 0.2 % (0.0-5.0); EOSINOPHILS # (AUTO) 0.12 K/uL (0.00-0.70); EOSINOPHILS % (AUTO) 1.1 % (0.0-8.0); HEMATOCRIT 34.2 % (42-54); IMMATURE GRANULOCYTE ABSOLUTE 0.09 K/uL (0-1); LYMPHOCYTES # (AUTO) 4.3 K/uL (1.0-4.8); MEAN CORPUSCULAR HEMOGLOBIN 29.6 pg (27.0-33.0); MEAN CORPUSCULAR HGB CONC 32.7 g/dL (32.0-36.0); MEAN CORPUSCULAR VOLUME 90.2 fL (79-99); MONOCYTES % (AUTO) 9.2 % (3.0-13.0); NEUTROPHILS # (AUTO) 5.5 K/uL (1.8-7.7); NEUTROPHILS % (AUTO) 49.7 % (40.0-77.0); PLATELET COUNT (AUTO) 232 K/uL (130-400); RED BLOOD CELL COUNT(AUTO) 3.79 MIL/uL (4.50-6.20); WHITE BLOOD COUNT (AUTO) 11.1 K/uL (4.8-10.8)
[2023-12-17 05:39] LABS: ALBUMIN 2.9 g/dL (3.5-5.0); BILIRUBIN,TOTAL 0.2 mg/dL (0.2-1.0); CREATININE 0.8 mg/dL (0.5-1.3); POTASSIUM 3.2 mmol/L (3.5-5.1); TOTAL PROTEIN, SERUM 6.1 g/dL (6.0-8.3)
[2023-12-17 06:38] VITALS: PULSE 79; RESP 18; O2SAT 97
[2023-12-17 08:00] VITALS: BP 119/69; PULSE 85; RESP 19; TEMP 97.7; O2SAT 94
[2023-12-17] MEDS ORDERED: PoTASSium chl 10% ELIXIR 20MEQ 20 MEQ/15 ML UDCUP PO PRN (08:00)
[2023-12-17] MEDS ORDERED: PoTASSium chloRIDE 20MEQ/100ML 100 ML IV PRN (08:00)
[2023-12-17] MEDS ORDERED: PoTASSium chloRIDE 20MEQ ER 20 MEQ ERTAB PO PRN (08:00)
[2023-12-17] MEDS: predniSONE 10 MG TABLET PO SCH (09:32)
== END 2023-12-17 09:50 | disposition home or self-care (01) | DRG 192 ==
LOC: EDH 14:47 → EDHIP 21:14 → 3CH 12-14 01:17
PROVIDERS: ADMIT Internal Medicine; ATTEND Internal Medicine
DX: J44.1 Chronic obstructive pulmonary disease with (acute) exacerbation (principal); E11.51 Type 2 diabetes mellitus with diabetic peripheral angiopathy without gangrene; I10 Essential (primary) hypertension; N40.0 Benign prostatic hyperplasia without lower urinary tract symptoms; Z20.822 Contact with and (suspected) exposure to COVID-19; E11.65 Type 2 diabetes mellitus with hyperglycemia; E78.00 Pure hypercholesterolemia, unspecified; Z79.4 Long term (current) use of insulin; Z79.899 Other long term (current) drug therapy; Z79.01 Long term (current) use of anticoagulants; Z79.02 Long term (current) use of antithrombotics/antiplatelets; Z79.84 Long term (current) use of oral hypoglycemic drugs; Z86.718 Personal history of other venous thrombosis and embolism
CPT/HCPCS: 36415; 71045; 80048; 80053; 81001; 82550; 82947; 82948; 83735; 83880; 84100; 84484; 85025; 85027; 85610; 85730; 87071; 87205; 87420; 87635; 87804; 87880; 93005; 94640; 94664; 96374; G0378; J0456; J0696; J1450; J1650; J1815; J2919; J7512